=== PATIENT | female | born 1940 | race Caucasian/White ===

== ENCOUNTER 2023-02-06 18:54 | Inpatient (IN) | payer OTHER, SELFPAY ==
[2023-02-06] VITALS (8 sets, daily range): BP systolic 159–199; BP diastolic 76–98; PULSE 75–84; RESP 16–20; TEMP 36.2–36.8; O2SAT 92–98; BMI 23.1; BMI 25.4
--- NOTE | 2023-02-06 19:38 | DI.RAD.S_ITS ---
PROCEDURE: XR HIP W PEL IF DONE LT 2V INDICATIONS: LT hip pain after fall TECHNIQUE: AP pelvis with lateral view(s) of the left hip(s). COMPARISON: None. FINDINGS: Bones: No dislocations but there is a subcapital mildly impacted femoral neck fracture.. Pelvic ring appears intact. No suspicious bony lesions. Soft tissues: The visualized bowel gas pattern is normal. No suspicious soft tissue calcifications. Radiodensity at the L5 vertebral body suggest prior vertebroplasty/kyphoplasty. IMPRESSION: Subcapital mildly impacted acute femoral neck fracture. Dictated by: Anil Lara M.D. on 02/06/2023 at 20:05 Approved by: Anil Lara M.D. on 02/06/2023 at 20:07
--- NOTE | 2023-02-06 19:38 | ED.FALL ---
HPI - Fall General Chief Complaint: Fall Stated Complaint: GLF/ Left hip pain Time Seen by Provider: 02/06/23 19:36 Source: patient and EMS Mode of arrival: EMS History of Present Illness HPI Narrative: 82-year-old female is here for evaluation of injuries that she sustained when she states she was walking into a store when she tripped and fell and landed on her left hip. She would no loss of consciousness. Not on anticoagulation. Did not hit her head. Prior to fall did not have palpitations or lightheadedness or shortness of breath. Has been unable to ambulate since the event. Did receive IM fentanyl by EMS prior to arrival. Related Data Home Medications Medication Instructions Recorded Confirmed acetaminophen 325 mg capsule 500 mg PO QID 02/06/23 02/06/23 (Tylenol) amlodipine 2.5 mg tablet 5 mg PO DAILY 02/06/23 02/06/23 hydrochlorothiazide 25 mg tablet 25 mg PO DAILY 02/06/23 02/06/23 hydrocodone 5 mg-acetaminophen 325 5 tab PO PRN PRN Back Pain 02/06/23 02/06/23 mg tablet meloxicam 7.5 mg tablet 7.5 mg PO BID 02/06/23 02/06/23 methocarbamol 750 mg tablet 750 mg PO PRN PRN Back Pain 02/06/23 02/06/23 metoprolol succinate 25 mg 25 mg PO DAILY 02/06/23 02/06/23 tablet,extended release 24 hr mirtazapine 15 mg tablet 30 mg PO DAILY 02/06/23 02/06/23 omeprazole 20 mg capsule,delayed 20 mg PO BID 02/06/23 02/06/23 release Allergies Allergy/AdvReac Type Severity Reaction Status Date / Time No Known Drug Allergies Allergy Verified 02/06/23 19:09 Review of Systems Constitutional Constitutional: Reports system reviewed and no additional complaints, except as documented Cardiovascular Cardiovascular: Reports system reviewed and no additional complaints, except as documented Respiratory Respiratory: Reports system reviewed and no additional complaints, except as documented Gastrointestinal Gastrointestinal: Reports system reviewed and no additional complaints, except as documented Musculoskeletal Musculoskeletal: Reports system reviewed and no additional complaints, except as documented Hematologic/Lymphatic On Anticoagulants: No Patient History Social History Smoking Status: Never smoker Smoking Status: Never smoker alcohol intake frequency: 0-2 drinks per day Substance Use Type: does not use Exam Initial Vital Signs Initial Vital Signs: Vital Signs Temperature 98.2 F 02/06/23 19:02 Pulse Rate 75 02/06/23 19:02 Respiratory Rate 16 02/06/23 19:02 Blood Pressure 199/93 H 02/06/23 19:02 Pulse Oximetry 95 02/06/23 19:02 Oxygen Delivery Method Room Air 02/06/23 19:02 Const General: cooperative, comfortable and No ill appearing [facility] Head: normal to inspection and normocephalic Resp Effort & Inspection: normal respiratory effort Cardio Rate: regular rate Neuro General: patient alert, patient awake, patient oriented x3 and moves all extremities Extrem Other: Discomfort with palpation of the left hip. Left leg is shortened and rotated. Course Orders Ordered: ED Orders 02/06/23 19:38 XR hip w pel if done LT 2V Stat 02/06/23 20:20 Basic Metabolic Panel Stat Complete Blood Count AUTO DIFF Stat 02/06/23 20:27 Consult to Orthopedic Surgery Stat Acetaminophen (Acetaminophen 325 Mg Tablet) 650 mg PO Q6H PRN PRN Reason: Fever/Mild Pain (1-3) Al Hydrox/Mg Hydrox/Simethicone (Mag Hydrox/Alum/Simeth 30 Ml Udc) 30 ml PO Q6HR PRN PRN Reason: Dyspepsia Amlodipine Besylate (Amlodipine 5 Mg Tablet) 5 mg PO DAILY [facility] Enoxaparin Sodium (Enoxaparin 40 Mg/0.4 Ml Syringe) 40 mg SUBCUT DAILY [facility] Hydrochlorothiazide (Hydrochlorothiazide 25 Mg Tablet) 25 mg PO DAILY [facility] Sodium Chloride (Normal Saline 0.9%) 1,000 mls @ 84 mls/hr IV CONT [facility] Ibuprofen (Ibuprofen 400 Mg Tablet) 400 mg PO Q4H PRN PRN Reason: Pain, Mild (1-3) Metoprolol Succinate (Metoprolol Er 25 Mg Tablet) 25 mg PO DAILY [facility] Mirtazapine (Mirtazapine 15 Mg Tablet) 30 mg PO DAILY [facility] Morphine Sulfate (Morphine 4 Mg/Ml Inj) 3 mg IV Q4HR PRN PRN Reason: Pain, Severe (7-10) Naloxone HCl (Naloxone 0.4 Mg/Ml Vial) 0.2 mg IV Q2MIN PRN PRN Reason: Opiate Reversal Ondansetron HCl (Ondansetron 4 Mg Odt) 4 mg PO Q8HR PRN PRN Reason: Nausea And Vomiting Oxycodone HCl (Oxycodone Ir 5 Mg Tablet) 5 mg PO Q3H PRN PRN Reason: Pain, Moderate (4-6) Pantoprazole Sodium (Pantoprazole Dr 20 Mg Tablet) 20 mg PO BID USMAN Discontinued Medications Hydromorphone HCl (Hydromorphone 0.5 Mg Inj) 0.5 mg IV NOW ONE Stop: 02/06/23 21:56 Last Admin: 02/06/23 21:59 Dose: 0.5 mg Documented By: SB Morphine Sulfate (Morphine 4 Mg/Ml Inj) 4 mg IV NOW ONE Stop: 02/06/23 19:40 Last Admin: 02/06/23 20:22 Dose: 4 mg Documented By: QUYEN Morphine Sulfate (Morphine 4 Mg/Ml Inj) 4 mg IV NOW ONE Stop: 02/06/23 21:21 Last Admin: 02/06/23 21:23 Dose: 4 mg Documented By: QUYEN Ondansetron HCl (Ondansetron 4 Mg/2 Ml Inj) 4 mg IV NOW ONE Stop: 02/06/23 21:21 Last Admin: 02/06/23 21:24 Dose: 4 mg Documented By: QUYEN Vital Signs Vital signs: Vital Signs - 8 hr 02/06/23 19:02 02/06/23 19:23 02/06/23 19:30 Temperature 98.2 F Pulse Rate 75 75 Respiratory Rate 16 Blood Pressure 199/93 H 181/86 H Pulse Oximetry 95 94 Oxygen Delivery Method Room Air 02/06/23 19:30 02/06/23 20:00 02/06/23 20:00 Temperature Pulse Rate 75 80 Respiratory Rate 18 Blood Pressure 181/81 H Pulse Oximetry 93 98 Oxygen Delivery Method 02/06/23 20:30 02/06/23 20:30 02/06/23 21:00 Temperature Pulse Rate 79 Respiratory Rate 20 Blood Pressure 180/88 H 181/85 H Pulse Oximetry 94 Oxygen Delivery Method 02/06/23 21:00 Temperature Pulse Rate 78 Respiratory Rate Blood Pressure Pulse Oximetry 92 Oxygen Delivery Method MDM - Fall Lab Data Attestation: I reviewed the patient's lab results. 02/06/23 20:20 02/06/23 20:20 Labs: Lab Results 02/06/23 02/06/23 Range/Units 20:20 20:20 WBC 8.9 (4.5-11.0) X10^3/uL RBC 3.97 L (4.0-5.2) X10^6/uL Hgb 12.3 (12.0-16.0) g/dL Hct 35.3 L (36-46) % MCV 89.0 (80-100) fL MCH 30.9 (26-34) PG MCHC 34.7 (30-36) % RDW 14.7 (11.6-14.8) % Plt Count 173 (150-400) X10^3/uL Neut % (Auto) Not Reportable Lymph % (Auto) Not Reportable [place] % (Auto) Not Reportable Eos % (Auto) Not Reportable Baso % (Auto) Not Reportable Lymph # (Auto) Not Reportable [place] # (Auto) Not Reportable Baso # (Auto) Not Reportable Total Counted 100 Seg Neutrophils % 80.0 H (38-70) % Lymphocytes % (Manual) 14.0 L (25-45) % Atypical Lymphs % 1.0 H ( - 0) % Monocytes % (Manual) 2.0 (2-11) % Eosinophils % (Manual) 2.0 (2-4) % Basophils % (Manual) 1.0 (0-1) % Neutrophils # (Manual) 7120 H (9564-2462) /uL RBC Morphology See below Hypochromasia 1+ H Poikilocytosis 1+ H Fatimah Cells 1+ H Schistocytes 1+ H Sodium 126 L (137-145) mmol/L Potassium 3.4 (3.4-5.1) mmol/L Chloride 91 L (98-107) mmol/L Carbon Dioxide 24 (22-32) mmol/L BUN 14 (7-17) mg/dL Creatinine 0.77 (0.52-1.04) mg/dL Estimated GFR > 60 (>60) mL/min BUN/Creatinine Ratio 18.2 (6-22) Glucose 109 (80-110) mg/dL Calcium 9.2 (8.4-10.2) mg/dL Imaging Data Extremity x-ray #1: Radiologist's Impression: PROCEDURE:? XR HIP W PEL IF DONE LT 2V ? INDICATIONS:? LT hip pain after fall ? TECHNIQUE:? AP pelvis with lateral view(s) of the left hip(s).? ? COMPARISON:? None. ? FINDINGS:? ? Bones:? No dislocations but there is a subcapital mildly impacted femoral neck fracture.. ?Pelvic ring appears intact.? No suspicious bony lesions.? ? Soft tissues:? The visualized bowel gas pattern is normal.? No suspicious soft tissue calcifications.? Radiodensity at the L5 vertebral body suggest prior vertebroplasty/kyphoplasty. ? ? IMPRESSION:? Subcapital mildly impacted acute femoral neck fracture. MDM Narrative Medical decision making narrative: X-ray shows left femoral neck fracture. Discussed the case with Dr. Short on-call for Orthopedic surgery who see the patient tomorrow morning. And then discuss the case with hospitalist on-call who will admit for further evaluation and treatment. I did discuss the findings of the x-ray with the patient. We discussed the need for admission. They expressed understanding and agreement. Discharge Plan Departure Patient Disposition: Admitted As Inpatient Clinical Impression: Fracture of femoral neck, left, Hypertension Admit Date/Time: 02/06/23 21:15 Admit Provider: Ti Larsen
[2023-02-06] MEDS: MORPHINE 4 MG/ML INJ IV ×2 (20:22→21:23)
[2023-02-06 20:39] LABS: Hematocrit 35.3 % (36-46); Hemoglobin 12.3 g/dL (12.0-16.0); Mean Corpuscular HGB Conc 34.7 % (30-36); Mean Corpuscular Hemoglobin 30.9 PG (26-34); Platelet Count 173 X10^3/uL (150-400); Red Blood Cell Count 3.97 X10^6/uL (4.0-5.2); Red Cell Distribution Width 14.7 % (11.6-14.8); White Blood Cell Count 8.9 X10^3/uL (4.5-11.0)
[2023-02-06 20:40] LABS: Add Manual Diff / Slide Review YES
[2023-02-06 20:46] LABS: BUN Creatinine Ratio 18.2 (6-22); Blood Urea Nitrogen 14 mg/dL (7-17); Calcium 9.2 mg/dL (8.4-10.2); Carbon Dioxide 24 mmol/L (22-32); Chloride 91 mmol/L (98-107); Estimated Glomerular Filt Rate > 60 mL/min (>60); Glucose 109 mg/dL (80-110); HEMOLYSIS < 15 (0-50); Potassium 3.4 mmol/L (3.4-5.1); Sodium 126 mmol/L (137-145)
[2023-02-06 21:04] LABS: Neutrophils Absolute Manual 7120 /uL (3000-5900); Total Cells Counted 100
[2023-02-06 21:05] LABS: Burr Cells 1+; Hypochromasia 1+; Poikilocytosis 1+; Schistocytes 1+
[2023-02-06] MEDS: ONDANSETRON 4 MG/2 ML INJ IV (21:24)
[2023-02-06] MEDS: HYDROMORPHONE 0.5 MG INJ IV (21:59)
[2023-02-07] VITALS (16 sets, daily range): BP systolic 137–166; BP diastolic 62–130; PULSE 71–88; RESP 11–18; TEMP 36.1–36.9; O2SAT 92–97; BMI 25.4
--- NOTE | 2023-02-07 | DI.RAD.S_ITS ---
PROCEDURE: XR HIP W PEL IF DONE LT 2V INDICATIONS: ORIF OF LT HIP TECHNIQUE: 2 low resolution fluoroscopic spot films were obtained intra[facility]/06/[facility]23, 19:35. FINDINGS: Intraoperative spot films show 3 orthopedic threaded screw cannulated screws traversing the left femoral neck fracture in good position IMPRESSION: Fluoroscopic guidance Approved by: Raghu Fajardo M.D. on 02/07/2023 at 15:41
[2023-02-07] MEDS: ACETAMINOPHEN 325 MG TABLET 650 MG PO ×4 (00:09→20:26)
[2023-02-07] MEDS: ENOXAPARIN 40 MG/0.4 ML SYRINGE SUBCUT (00:10)
[2023-02-07] MEDS: OXYCODONE IR 5 MG TABLET PO ×3 (00:10→21:38)
[2023-02-07] MEDS: SODIUM CHLORIDE 0.9% 1,000 ML 84 ML IV ×2 (00:11→14:37)
[2023-02-07] MEDS: HYDROMORPHONE 2 MG INJ IV (01:42)
--- NOTE | 2023-02-07 02:01 | PM.HP.1 ---
History of Present Illness History of Present Illness Date Patient Seen: 02/06/23 Chief complaint: GLF/ Left hip pain Narrative: 82 y/o with PMH of osteoporosis, recurrent GLFs due to imapired balance, who fell in the store and fractured Lt femoral neck. Presents with left hip pain, unable to bear weight / ambulate. Only recently had kyphoplasty of LS for osteoporotic compression fractures. COUNT INCLUDES THE [facility] Social History household members: family Smoking Status: Never smoker Meds Home Medications and Allergies Home Medications Medication Instructions Recorded Confirmed Type acetaminophen 325 mg capsule 500 mg PO QID 02/06/23 02/06/23 History (Tylenol) amlodipine 2.5 mg tablet 5 mg PO DAILY 02/06/23 02/06/23 History hydrochlorothiazide 25 mg tablet 25 mg PO DAILY 02/06/23 02/06/23 History hydrocodone 5 mg-acetaminophen 325 5 tab PO PRN PRN Back Pain 02/06/23 02/06/23 History mg tablet meloxicam 7.5 mg tablet 7.5 mg PO BID 02/06/23 02/06/23 History methocarbamol 750 mg tablet 750 mg PO PRN PRN Back Pain 02/06/23 02/06/23 History metoprolol succinate 25 mg 25 mg PO DAILY 02/06/23 02/06/23 History tablet,extended release 24 hr mirtazapine 15 mg tablet 30 mg PO DAILY 02/06/23 02/06/23 History omeprazole 20 mg capsule,delayed 20 mg PO BID 02/06/23 02/06/23 History release polyethylene glycol 3350 17 gram 17 g PO PRN PRN Constipation 02/07/23 02/07/23 History oral powder packet (Miralax) Allergies Allergy/AdvReac Type Severity Reaction Status Date / Time Penicillins Allergy Mild Rash Verified 02/07/23 01:21 Review of Systems Constitutional Comments: w/o fever or chills Eyes Comments: w/o recent vision changes Cardiovascular Comments: w/o palpitations or chest pain Respiratory Comments: w/o shortness of breath or cough Gastrointestinal Comments: heartburn Genitourinary Comments: w/o dysuria - doing self catheterizations Musculoskeletal Comments: left groin pain Neurologic Comments: w/o focal weakness or numbness Psychiatric Comments: negative Exam Vital Signs (past 8 hours): - 02/06/23 19:02 02/06/23 19:23 02/06/23 19:30 Temperature 98.2 F Pulse Rate 75 75 Respiratory Rate 16 Blood Pressure 199/93 H 181/86 H Pulse Oximetry 95 94 Oxygen Delivery Method Room Air Oxygen Flow Rate 02/06/23 19:30 02/06/23 20:00 02/06/23 20:00 Temperature Pulse Rate 75 80 Respiratory Rate 18 Blood Pressure 181/81 H Pulse Oximetry 93 98 Oxygen Delivery Method Oxygen Flow Rate 02/06/23 20:30 02/06/23 20:30 02/06/23 21:00 Temperature Pulse Rate 79 Respiratory Rate 20 Blood Pressure 180/88 H 181/85 H Pulse Oximetry 94 Oxygen Delivery Method Oxygen Flow Rate 02/06/23 21:00 02/06/23 21:30 02/06/23 22:27 Temperature 97.1 F L Pulse Rate 78 84 Respiratory Rate 20 Blood Pressure 159/76 H 189/98 H Pulse Oximetry 92 93 Oxygen Delivery Method Oxygen Flow Rate 0 02/07/23 00:22 Temperature 97.6 F Pulse Rate 81 Respiratory Rate 18 Blood Pressure 161/82 H Pulse Oximetry 97 Oxygen Delivery Method Oxygen Flow Rate 0 Oxygen Delivery Method Room Air Oxygen Flow Rate 0 Const Other: laying in bed in no distress, daughter at bedside HENMT Other: chronic hearing loss Eyes Other: jaimie, eomi Neck Other: supple Resp Other: CTA Cardio Other: RRR, w/o murmurs GI Other: soft, not distended Other: doing selg catheterizations Neuro Other: w/o acute focal deficits Extrem Other: w/o swelling Psych Other: appropriate mood and affect Objective Labs 02/06/23 20:20 02/06/23 20:20 Labs: Laboratory Results - last 24 hr 02/06/23 02/06/23 20:20 20:20 WBC 8.9 RBC 3.97 L Hgb 12.3 Hct 35.3 L MCV 89.0 MCH 30.9 MCHC 34.7 RDW 14.7 Plt Count 173 Neut % (Auto) Not Reportable Lymph % (Auto) Not Reportable [place] % (Auto) Not Reportable Eos % (Auto) Not Reportable Baso % (Auto) Not Reportable Lymph # (Auto) Not Reportable [place] # (Auto) Not Reportable Baso # (Auto) Not Reportable Total Counted 100 Seg Neutrophils % 80.0 H Lymphocytes % (Manual) 14.0 L Atypical Lymphs % 1.0 H Monocytes % (Manual) 2.0 Eosinophils % (Manual) 2.0 Basophils % (Manual) 1.0 Neutrophils # (Manual) 7120 H RBC Morphology See below Hypochromasia 1+ H Poikilocytosis 1+ H Fatimah Cells 1+ H Schistocytes 1+ H Sodium 126 L Potassium 3.4 Chloride 91 L Carbon Dioxide 24 BUN 14 Creatinine 0.77 Estimated GFR > 60 BUN/Creatinine Ratio 18.2 Glucose 109 Calcium 9.2 Assessment & Plan Assessment and plan (1) Fracture of femoral neck, left: Status: Acute Plan: - impacetd, subcapital - pain management - NPO after midnight - Orthopedist will see in AM - low surgical risk (2) GERD (gastroesophageal reflux disease): Status: Acute Plan: - PPI (3) Hypertension: Status: Acute Plan: - HCTZ, amlodipine, BB (4) Osteoporosis: Status: Acute Plan: used to be on Fosamax. Apparently on nothing right now - will need vit D and bisphosphonate (5) Recurrent falls: Status: Acute Plan: PT, OT evaluation (6) Hyponatremia: Status: Acute Plan: NS, recheck nelly
[2023-02-07 05:20] LABS: Hematocrit 34.9 % (36-46); Mean Corpuscular HGB Conc 34.3 % (30-36); Mean Corpuscular Hemoglobin 30.8 PG (26-34); Mean Corpuscular Volume 89.7 fL (80-100); Platelet Count 158 X10^3/uL (150-400); Red Blood Cell Count 3.89 X10^6/uL (4.0-5.2); Red Cell Distribution Width 14.1 % (11.6-14.8); White Blood Cell Count 7.4 X10^3/uL (4.5-11.0)
[2023-02-07 05:21] LABS: PTT Partial Thromboplastin Tim 33 SECONDS (26-36)
[2023-02-07 05:23] LABS: BUN Creatinine Ratio 16.7 (6-22); Blood Urea Nitrogen 15 mg/dL (7-17); Calcium 8.6 mg/dL (8.4-10.2); Carbon Dioxide 25 mmol/L (22-32); Chloride 96 mmol/L (98-107); Estimated Glomerular Filt Rate > 60 mL/min (>60); Glucose 99 mg/dL (80-110); HEMOLYSIS < 15 (0-50); Potassium 4.2 mmol/L (3.4-5.1); Sodium 127 mmol/L (137-145)
[2023-02-07 05:24] LABS: Add Manual Diff / Slide Review YES
[2023-02-07 05:58] LABS: Anisocytosis 1+; Neutrophils Absolute Manual 5254 /uL (3000-5900); Total Cells Counted 100
--- NOTE | 2023-02-07 07:11 | PM.HP.1 ---
History of Present Illness History of Present Illness Date Patient Seen: 02/06/23 Chief complaint: GLF/ Left hip pain Narrative: 82 y/o with PMH of osteoporosis, recurrent GLFs due to imapired balance, who fell in the store and fractured Lt femoral neck. Presents with left hip pain, unable to bear weight / ambulate. Only recently had kyphoplasty of LS for osteoporotic compression fractures. [facility] Social History household members: none Smoking Status: Never smoker Meds Home Medications and Allergies Home Medications Medication Instructions Recorded Confirmed Type acetaminophen 325 mg capsule 500 mg PO QID 02/06/23 02/06/23 History (Tylenol) amlodipine 2.5 mg tablet 5 mg PO DAILY 02/06/23 02/06/23 History hydrochlorothiazide 25 mg tablet 25 mg PO DAILY 02/06/23 02/06/23 History hydrocodone 5 mg-acetaminophen 325 5 tab PO PRN PRN Back Pain 02/06/23 02/06/23 History mg tablet meloxicam 7.5 mg tablet 7.5 mg PO BID 02/06/23 02/06/23 History methocarbamol 750 mg tablet 750 mg PO PRN PRN Back Pain 02/06/23 02/06/23 History metoprolol succinate 25 mg 25 mg PO DAILY 02/06/23 02/06/23 History tablet,extended release 24 hr mirtazapine 15 mg tablet 30 mg PO DAILY 02/06/23 02/06/23 History omeprazole 20 mg capsule,delayed 20 mg PO BID 02/06/23 02/06/23 History release polyethylene glycol 3350 17 gram 17 g PO PRN PRN Constipation 02/07/23 02/07/23 History oral powder packet (Miralax) Allergies Allergy/AdvReac Type Severity Reaction Status Date / Time Penicillins Allergy Mild Rash Verified 02/07/23 01:21 Review of Systems Review of Systems Narrative: All other systems reviewed with the patient and are negative unless otherwise stated. Exam Vital Signs (past 8 hours): - 02/07/23 00:22 02/07/23 03:45 Temperature 97.6 F 97.7 F Pulse Rate 81 73 Respiratory Rate 18 17 Blood Pressure 161/82 H 146/62 H Pulse Oximetry 97 93 Oxygen Flow Rate 0 0 Oxygen Delivery Method Room Air Oxygen Flow Rate 0 Const Other: laying in bed in no distress, daughter at bedside HENMT Other: chronic hearing loss Eyes Other: jaimie, eomi Neck Other: supple Resp Other: CTA Cardio Other: RRR, w/o murmurs GI Other: soft, not distended Other: doing self catheterizations Neuro Other: w/o acute focal deficits Extrem Other: w/o swelling Psych Other: appropriate mood and affect Objective Labs 02/07/23 05:00 02/07/23 05:00 Labs: Laboratory Results - last 24 hr 02/06/23 02/06/23 02/07/23 20:20 20:20 05:00 WBC 8.9 RBC 3.97 L Hgb 12.3 Hct 35.3 L MCV 89.0 MCH 30.9 MCHC 34.7 RDW 14.7 Plt Count 173 Neut % (Auto) Not Reportable Lymph % (Auto) Not Reportable [place] % (Auto) Not Reportable Eos % (Auto) Not Reportable Baso % (Auto) Not Reportable Lymph # (Auto) Not Reportable [place] # (Auto) Not Reportable Baso # (Auto) Not Reportable Total Counted 100 Seg Neutrophils % 80.0 H Band Neutrophils % Lymphocytes % (Manual) 14.0 L Atypical Lymphs % 1.0 H Monocytes % (Manual) 2.0 Eosinophils % (Manual) 2.0 Basophils % (Manual) 1.0 Neutrophils # (Manual) 7120 H RBC Morphology See below Hypochromasia 1+ H Poikilocytosis 1+ H Anisocytosis Fatimah Cells 1+ H Schistocytes 1+ H APTT 33 Sodium 126 L Potassium 3.4 Chloride 91 L Carbon Dioxide 24 BUN 14 Creatinine 0.77 Estimated GFR > 60 BUN/Creatinine Ratio 18.2 Glucose 109 Calcium 9.2 02/07/23 02/07/23 05:00 05:00 WBC 7.4 RBC 3.89 L Hgb 12.0 Hct 34.9 L MCV 89.7 MCH 30.8 MCHC 34.3 RDW 14.1 Plt Count 158 Neut % (Auto) Not Reportable Lymph % (Auto) Not Reportable [place] % (Auto) Not Reportable Eos % (Auto) Not Reportable Baso % (Auto) Not Reportable Lymph # (Auto) Not Reportable [place] # (Auto) Not Reportable Baso # (Auto) Not Reportable Total Counted 100 Seg Neutrophils % 69.0 Band Neutrophils % 2.0 L Lymphocytes % (Manual) 21.0 L Atypical Lymphs % Monocytes % (Manual) 5.0 Eosinophils % (Manual) 2.0 Basophils % (Manual) 1.0 Neutrophils # (Manual) 5254 RBC Morphology See below Hypochromasia Poikilocytosis Anisocytosis 1+ H [facility] Cells Schistocytes APTT Sodium 127 L Potassium 4.2 Chloride 96 L Carbon Dioxide 25 BUN 15 Creatinine 0.90 Estimated GFR > 60 BUN/Creatinine Ratio 16.7 Glucose 99 Calcium 8.6 Assessment & Plan Assessment and plan (1) Fracture of femoral neck, left: Status: Acute Plan: - impacted, subcapital - pain management - underwent surgical repair with screws on 02/[address] Han ornelas - low surgical risk - PT/OT evals (2) GERD (gastroesophageal reflux disease): Status: Acute Plan: - PPI (3) Hypertension: Status: Acute Plan: - HCTZ, amlodipine, BB (4) Osteoporosis: Status: Acute Plan: used to be on Fosamax. Apparently on nothing right now - will need vit D and bisphosphonate (5) Recurrent falls: Status: Acute Plan: PT, OT evaluation (6) Hyponatremia: Status: Acute Plan: NS, recheck lytes Plan Dispo: Likely will need SNF.
[2023-02-07] MEDS: IBUPROFEN 400 MG TABLET PO (08:21)
[2023-02-07] MEDS: METOPROLOL ER 25 MG TABLET PO (08:21)
[2023-02-07] MEDS: hydroCHLOROthiazide 25 MG TABLET PO (08:21)
[2023-02-07] MEDS: AMLODIPINE 5 MG TABLET PO (08:22)
[2023-02-07] MEDS: PANTOPRAZOLE DR 20 MG TABLET PO ×2 (08:22→20:26)
[2023-02-07] MEDS: MIRTAZAPINE 15 MG TABLET 30 MG PO (08:22)
--- NOTE | 2023-02-07 09:27 | CM.DANOTE ---
DCP Assessment Note: Patient is a 82yo F here following a GLF. PCP Dr. Matthews(sp?) in [facility] and self pay CONE FORMER reviewed EMR. Per RN, patient is likely to have surgery later today for broken hip and neck fracture but unsure on time. CONE FORMER entered room and introduced self and role. Patient resting in bed and appeared A/Ox4. Patient lives alone on top floor of apartment in [place] but has a daughter that lives nearby that she can stay with upon d/c. Daughter Pat De Leon ([phone]). Patient has two other daughters that live in the area that can support her. Patient is A/I at home and only recently stopped driving, but her daughters and other family drive for her. Patient has a few walkers and an electric wheelchair gifted to her. Patient appears more open to HH if needed than SNF, but agrees to wait until she sees how she feels with PT/OT post op. Plan: plan pending patient's status post op. Appears open to HH. Supportive family at home, daughter can likely transport. CM team will continue to follow closely. MEHDI Lopez Discharge Planning/Care Management CM Discharge Assessment Start: 02/07/23 09:23 Freq: Status: Active Protocol: Document 02/07/23 09:23 (Rec: 02/07/23 09:26 [email or web address]) Discharge Planning Assessment Assigned Cyber Defense Analyst MEHDI Barrientos DPOA/Assigned Designee Name Pat De Leon (daughter) Contact Information [phone] Advance Directives? No History Provided By Patient,Medical Record Prior Living Arrangements House Household Members none Comment lives alone but daughter and OLYA lives nearby Comment reports recently the DMV told her she is not allowed to drive anymore. Relies on daughters and other family for transport Independent with ADL's Yes Is patient alert and oriented? Yes DME Already Rented / Owned Wheelchair,FWW / Walker Comment neighbor gave her an electric wheelchair. has a few walkers Comment pending post op needs and PT/ OT rec Discharge Plan Home Transportation Arrangement likely daughter in POV Whiteboard Updated in Patient Room with Yes name and ext. # of Cyber Defense Analyst Review Status In Process Next Review Type Continued Stay Review
--- NOTE | 2023-02-07 10:12 | PT-IP ANOTE ---
Per MD during rounds, the patient is on hold for therapy services until she undergoes surgery to fix left femoral neck fracture.
--- NOTE | 2023-02-07 10:15 | P.CONS_ITS ---
History of Present Illness Consult details Date Patient Seen: 02/07/23 Time Patient Seen: 09:30 Chief complaint: GLF/ Left hip pain Narrative: 82-year-old female who tripped and fell at [employer] yesterday landing on her left hip. Patient denies hitting her head or any loss of consciousness. Denies any other injuries except to the left hip. After the fall had quite a bit of pain to the left hip and difficulty ambulating. Was taken to the emergency room where x-ray showed a impacted femoral neck fracture. Due to these injuries patient was admitted by the hospitalist. And Orthopedic was consulted for possible surgery. Meds Home Medications and Allergies Home Medications Medication Instructions Recorded Confirmed Type acetaminophen 325 mg capsule 500 mg PO QID 02/06/23 02/06/23 History (Tylenol) amlodipine 2.5 mg tablet 5 mg PO DAILY 02/06/23 02/06/23 History hydrochlorothiazide 25 mg tablet 25 mg PO DAILY 02/06/23 02/06/23 History hydrocodone 5 mg-acetaminophen 325 5 tab PO PRN PRN Back Pain 02/06/23 02/06/23 History mg tablet meloxicam 7.5 mg tablet 7.5 mg PO BID 02/06/23 02/06/23 History methocarbamol 750 mg tablet 750 mg PO PRN PRN Back Pain 02/06/23 02/06/23 History metoprolol succinate 25 mg 25 mg PO DAILY 02/06/23 02/06/23 History tablet,extended release 24 hr mirtazapine 15 mg tablet 30 mg PO DAILY 02/06/23 02/06/23 History omeprazole 20 mg capsule,delayed 20 mg PO BID 02/06/23 02/06/23 History release polyethylene glycol 3350 17 gram 17 g PO PRN PRN Constipation 02/07/23 02/07/23 History oral powder packet (Miralax) Allergies Allergy/AdvReac Type Severity Reaction Status Date / Time Penicillins Allergy Mild Rash Verified 02/07/23 01:21 Exam Vital Signs (past 8 hours): - 02/07/23 03:45 02/07/23 08:21 02/07/23 07:00 Temperature 97.7 F 98.4 F Pulse Rate 73 76 76 Respiratory Rate 17 17 Blood Pressure 146/62 H 145/68 H 145/68 H Pulse Oximetry 93 92 Oxygen Flow Rate 0 0 Oxygen Delivery Method Room Air Oxygen Flow Rate 0 Narrative Exam Narrative: On exam today patient is alert and oriented x3. No apparent distress. No abnormalities to the bilateral upper extremities. Patient has normal range of motion to bilateral upper extremities. Does have a deformity to the right wrist due to a previous distal radius fracture 6 months ago. But no sign of any acute injuries. Compartments are soft. No sign of any laxity or instability. No sign of any swelling to the bilateral upper extremities. In no pain with range of motion. Right lower extremity is also free of any abnormalities. Normal range of motion without any pain or instability. Also no bruising or swelling. Compartments are soft. Left lower extremity shows some slight shortening not much rotation deformity. Positive dorsiflexion and plantar flexion. Palpable pedal pulses. Compartments are soft. No sign of any open wounds or skin abrasions. Objective Labs 02/07/23 05:00 02/07/23 05:00 Labs: Laboratory Results - last 24 hr 02/06/23 02/06/23 02/07/23 20:20 20:20 05:00 WBC 8.9 RBC 3.97 L Hgb 12.3 Hct 35.3 L MCV 89.0 MCH 30.9 MCHC 34.7 RDW 14.7 Plt Count 173 Neut % (Auto) Not Reportable Lymph % (Auto) Not Reportable [place] % (Auto) Not Reportable Eos % (Auto) Not Reportable Baso % (Auto) Not Reportable Lymph # (Auto) Not Reportable [place] # (Auto) Not Reportable Baso # (Auto) Not Reportable Total Counted 100 Seg Neutrophils % 80.0 H Band Neutrophils % Lymphocytes % (Manual) 14.0 L Atypical Lymphs % 1.0 H Monocytes % (Manual) 2.0 Eosinophils % (Manual) 2.0 Basophils % (Manual) 1.0 Neutrophils # (Manual) 7120 H RBC Morphology See below Hypochromasia 1+ H Poikilocytosis 1+ H Anisocytosis Fatimah Cells 1+ H Schistocytes 1+ H APTT 33 Sodium 126 L Potassium 3.4 Chloride 91 L Carbon Dioxide 24 BUN 14 Creatinine 0.77 Estimated GFR > 60 BUN/Creatinine Ratio 18.2 Glucose 109 Calcium 9.2 02/07/23 02/07/23 05:00 05:00 WBC 7.4 RBC 3.89 L Hgb 12.0 Hct 34.9 L MCV 89.7 MCH 30.8 MCHC 34.3 RDW 14.1 Plt Count 158 Neut % (Auto) Not Reportable Lymph % (Auto) Not Reportable [place] % (Auto) Not Reportable Eos % (Auto) Not Reportable Baso % (Auto) Not Reportable Lymph # (Auto) Not Reportable [place] # (Auto) Not Reportable Baso # (Auto) Not Reportable Total Counted 100 Seg Neutrophils % 69.0 Band Neutrophils % 2.0 L Lymphocytes % (Manual) 21.0 L Atypical Lymphs % Monocytes % (Manual) 5.0 Eosinophils % (Manual) 2.0 Basophils % (Manual) 1.0 Neutrophils # (Manual) 5254 RBC Morphology See below Hypochromasia Poikilocytosis Anisocytosis 1+ H Fatimah Cells Schistocytes APTT Sodium 127 L Potassium 4.2 Chloride 96 L Carbon Dioxide 25 BUN 15 Creatinine 0.90 Estimated GFR > 60 BUN/Creatinine Ratio 16.7 Glucose 99 Calcium 8.6 PFSH Social History household members: none Tobacco & Substance Use Smoking Status: Never smoker Assessment & Plan Assessment & Plan narrative: 82-year-old female with a left impacted femoral neck fracture. Due to this injury I would recommend surgery to address the fracture. Went over the particular risks and limitations associated with the procedure and all of her questions and concerns were answered to her full satisfaction. The risk, benefits, alternatives, possible complications, operative course, and postop outcomes were discussed. Complications including but not limiting to bleeding, infection, fracture, nerve injury, continued pain postoperatively or instability postoperatively were discussed in detail. Medical complications including but not limited to deep venous thrombosis event, anesthesia complications with excessive bleeding, vascular events or cardiac events and other possible complications were discussed in detail. Need for postoperative rehabilitation and anticipated hospital stay and clinical course were discussed in detail. Patient acknowledges understanding and elects to proceed with surgery.
--- NOTE | 2023-02-07 11:20 | PM.PREOP ---
Pre-operative Note Interval Note History & Physical reviewed/Exam performed by Physician: Yes Changes to H&P: No
[2023-02-07] MEDS: LACTATED RINGERS 1,000 ML 42 ML IV (11:21)
[2023-02-07] MEDS: ALBUTEROL/IPRATROPIUM 3 ML AMPUL INH (11:28)
[2023-02-07] MEDS: CEFAZOLIN 2 GM/100 ML PREMIX 100 ML IV ×2 (12:00→20:27)
--- NOTE | 2023-02-07 12:25 | SUR.OPER ---
Lateral on a tariq bag, head on pillow, gel axillary roll in place, bottom leg bent with gel pad under knee to foot, upper leg straight and supported with pillows. Upper arm supported by pillows and secured over bottom arm to padded arm board. Safety belt at hip, tape over blanket lower legs.
[2023-02-07] MEDS: BUPIVACAINE 0.5% (PF) 30 ML VIAL INJ (12:36)
--- NOTE | 2023-02-07 12:58 | P.OP_ITS ---
Operative Date/Time/Diagnoses Date of procedure: 02/07/23 Time of procedure: 12:00 Pre-op diagnosis: Left femoral neck fracture Post-op diagnosis: same Procedure & Clinicians Procedure: Closed reduction internal fixation left femoral neck fracture Same procedure as scheduled: Yes Indications: Impacted femoral neck fracture Surgeon: Hitesh Short Click Yes if Unassisted: Yes Anesthesia Type: General Operative Notes Findings: Impacted femoral neck fracture with minimal displacement Closure Type: primary Applied: implant(s) (3 7.3 partially-threaded cannulated screws) Estimated Blood Loss (mL): 10 Procedure in detail: On date of service, patient was met in the holding area where his operative site was signed and witnessed by the OR staff. Surgeries once again discussed with the patient and any remaining questions or concerns he had were answered fully. Patient received 2 g of Ancef preoperatively. Patient was taken back to the operating theater where general anesthesia was admitted. Patient was then transferred to the fracture table. Both feet were well padded and placed into fracture boot. A well-padded perineal post was placed. The left leg was slightly elevated and internally rotated was some distraction. The right leg was placed in scissor position on a lowered position. X-ray was brought in and AP and lateral views were obtained showing maintenance of a impacted left femoral neck fracture. Time-out had previously been formed verifying patient's name, procedure, and operative site. The leg was then prepped and draped in the normal sterile fashion. Ten blade was used to make a small incision on the lateral aspect of thigh. Guevara elevator was then used to elevate off a small area of the muscular tissue so we could get to the shaft of the femur. Guidewire was placed up into the femoral head in a center center position. This was verified on x-ray. Once we were satisfied with the position of the guidewire 2 additional guidewires were placed using the targeting guide. These were also verified with AP and lateral views with the C- arm. Once we were satisfied with the positioning and of the 3 guidewires they were measured and the appropriate screws were placed. Final x-rays were obtained verifying screw positioning and maintenance of reduction of the femoral neck fracture. The wound was then copiously irrigated and then closed in a layered fashion. The wound was cleaned, dried, and dressed. Patient was taken to the PACU in stable condition. Complications: none Post-operative Condition: stable Disposition: Acute Care Plan for aftercare: Patient can be partially weight-bearing to the left lower extremity. No restrictions to range of motion.
--- NOTE | 2023-02-07 17:40 | PC.NURSE ---
Pt arrived back to unit from PACU with no c/o pain or N/V. Pt was on 3 LO2 nasal cannula and was encouraged to cough, deep breathe and use IS when alert/awake. Pt complied with recommendations. SCDs applied and post op vitals started. Lots of family members came to visit pt and I spoke with pt's daughter, Xiomara Mogran, about her questions pertaining to next steps, d/c and length of stay at the hospital at this point. I stated that PT/OT was going to need to work with pt to assess her strength/mobility for d/c, but that our PT staff was scarce on weekends so they will most likely work with pt tomorrow morning. Xiomara mentioned that pt is supposed to use a FWW at home, but refuses and furniture surfs. I recommended that they bring her FWW tomorrow for PT. Xiomara also mentioned that pt has a lot of support at home if she does end up d/cing home, but that if pt needs SNF, they will support that for pt if it's best for pt and the safest option. I stated that care team will speak with them about pt needs tomorrow as well. The main person to contact is daughter, Pat De Leon, phone # , and if we cannot get ahold of her to call other daughter Xiomara Morgan, phone # .
[2023-02-07] MEDS: MELOXICAM 7.5 MG TABLET PO (20:26)
[2023-02-07] MEDS: DOCUSATE 100 MG CAPSULE PO (20:26)
[2023-02-07] MEDS: SENNOSIDES 8.6 MG TABLET 17.2 MG PO (20:27)
[2023-02-07] MEDS: methocarbamoL 500 MG TABLET 750 MG PO (20:37)
[2023-02-08] VITALS (7 sets, daily range): BP systolic 112–174; BP diastolic 52–74; PULSE 68–82; RESP 16–20; TEMP 36.2–36.5; O2SAT 92–99
[2023-02-08] MEDS: SODIUM CHLORIDE 0.9% 1,000 ML 100 ML IV ×2 (01:15→12:21)
[2023-02-08] MEDS: CEFAZOLIN 2 GM/100 ML PREMIX 100 ML IV (05:14)
[2023-02-08 06:04] LABS: BUN Creatinine Ratio 18.7 (6-22); Blood Urea Nitrogen 14 mg/dL (7-17); Carbon Dioxide 21 mmol/L (22-32); Chloride 101 mmol/L (98-107); Estimated Glomerular Filt Rate > 60 mL/min (>60); Glucose 109 mg/dL (80-110); HEMOLYSIS 27 (0-50); Magnesium 1.7 mg/dL (1.6-2.3); Potassium 4.5 mmol/L (3.4-5.1); Sodium 127 mmol/L (137-145)
[2023-02-08 06:13] LABS: Hematocrit 30.7 % (36-46); Hemoglobin 10.4 g/dL (12.0-16.0); Red Blood Cell Count 3.41 X10^6/uL (4.0-5.2); White Blood Cell Count 7.6 X10^3/uL (4.5-11.0)
[2023-02-08 06:14] LABS: Eosinophils Percent Auto 2.3 % (2-4); Lymphocytes Percent Auto 9.3 % (25-40); Mean Corpuscular HGB Conc 33.8 % (30-36); Mean Corpuscular Hemoglobin 30.4 PG (26-34); Monocytes Percent Auto 4.6 % (3-14); Neutrophils Percent Auto 82.8 % (50-75); Red Cell Distribution Width 14.5 % (11.6-14.8)
[2023-02-08 06:15] LABS: Add Manual Diff / Slide Review SLIDE REVIEW; Basophils Absolute Auto 100 /uL (0-100); Eosinophils Absolute Auto 200 /uL (0-450); Lymphocytes Absolute Auto 700 /uL (1100-4500); Monocytes Absolute Auto 300 /uL (0-900); Neutrophils Absolute Auto 6300 /uL (1500-7000)
[2023-02-08 07:07] LABS: Schistocytes 1+
[2023-02-08] MEDS: OXYCODONE IR 5 MG TABLET PO ×4 (08:08→18:43)
[2023-02-08] MEDS: METOPROLOL ER 25 MG TABLET PO (08:09)
[2023-02-08] MEDS: DOCUSATE 100 MG CAPSULE PO ×2 (08:09→20:15)
[2023-02-08] MEDS: AMLODIPINE 5 MG TABLET PO (08:09)
[2023-02-08] MEDS: ENOXAPARIN 40 MG/0.4 ML SYRINGE SUBCUT (08:09)
[2023-02-08] MEDS: hydroCHLOROthiazide 25 MG TABLET PO (08:09)
[2023-02-08] MEDS: PANTOPRAZOLE DR 20 MG TABLET PO ×2 (08:10→20:14)
[2023-02-08] MEDS: MIRTAZAPINE 15 MG TABLET 30 MG PO (08:10)
[2023-02-08] MEDS: polyethylene glycoL 3350 17 GM POWD.PACK PO (08:10)
[2023-02-08] MEDS: MELOXICAM 7.5 MG TABLET PO ×2 (08:12→20:15)
[2023-02-08] MEDS: HYDROMORPHONE 0.5 MG INJ IV ×2 (09:05→11:00)
[2023-02-08] MEDS: MAGNESIUM CHLORIDE 64 MG TABLET 128 MG PO (09:07)
--- NOTE | 2023-02-08 09:45 | OT.IP.EVAL ---
Current Diagnoses Hypo-osmolality and hyponatremia (02/06/23) Essential (primary) hypertension (02/06/23) Gastro-esophageal reflux disease without esophagitis (02/06/23) Age-related osteoporosis without current pathological fracture (02/06/23) Repeated falls (02/06/23) Fracture of unspecified part of neck of left femur, initial encounter for closed fracture (02/06/23) Surgery Performed Operation Date: 02/07/23 12:00 Actual Procedures p ORIF Hip/Cannulated Screws - Hitesh Short MD Occupational Therapy Inpatient Evaluation/Re-Eval M1 PT/OT-IP Prior Functional Status Start: 02/08/23 08:35 Freq: NEEDED Status: Active Protocol: Document 02/08/23 10:12 CGR (Rec: 02/08/23 10:38 CGR [id number]) Medical Review Prior Functional Status Medical History Reviewed Yes Communication Pt is an effective verbal communicators. Mobility and Gait Pt was Ind at baseline. Activities of Daily Living and IADL's Pt was IND at baseline and lives alone. Social History Household Members none Living Arrangements House Number of Floors (Floors) Two Floors Number of Stairs To Enter/Railing? Pt states she has 2 steps to enter from the garage with a railing on the R assending. Pt has a chair lift up to the second floor which is her main living area. Home Environment Standard Height Toilet,Walk in Shower,Tub/Shower Home Equipment Front Wheel Walker,Four Wheel Walker,Manual Wheelchair, Shower Seat without Backrest, Hand Held Shower Employment Status Retired Additional Social History Comment Pt is an active hazmat tanker driver, has an adjustable bed, and has family that is very supportive and nearby. M2 OT-IP Current Condition Start: 02/08/23 10:10 Freq: Status: Active Protocol: Document 02/08/23 10:12 CGR (Rec: 02/08/23 10:38 CGR [id number]) Occupational Therapy Current Condition Current Condition Evaluation Date 02/08/23 Treatment Diagnosis L femoral fx, s/p pinning. Diagnosis Onset Date 02/06/23 Weight Bearing Status Weight Bearing Status Partial Weight Bearing Allowed Weight Bearing Amount (enter % 50% or #) (%) M3 OT- IP Subjective and Pain Start: 02/08/23 10:10 Freq: Status: Active Protocol: Document 02/08/23 10:12 CGR (Rec: 02/08/23 10:38 CGR [id number]) OT- Subjective Occupational Therapy Visit Type Type Initial Evaluation Visit Start Time 08:56 Visit Stop Time 09:45 Total Visit Minutes 49 Notes Pt requesting more pain medication and recieved IV medication prior to activity. OT Pain Assessment Pain When Pain Assessed At Rest Pain Present Pain Present Pain Reported Location Left Hip Intensity 8 Scale Used Numeric (0 - 10) Pain Behaviors Facial Grimacing Management Techniques Distraction,Modification of Treatment,Re-positioning, Timing of Activity with Medications M4 OT- IP ADL's Start: 02/08/23 10:10 Freq: Status: Active Protocol: Document 02/08/23 10:12 CGR (Rec: 02/08/23 10:38 CGR [id number]) OT [id number] Comments OT Self-Feeding Comments not meal time but pt is able to drink from a cup and from a straw. OT ADL-Grooming Comments OT Grooming Comments Pt declined after transfer requesting to rest OT ADL-Oral Care Comments Oral Care Comments Pt declined after transfer requesting to rest OT ADL-Dressing General Eval Lower Body Dressing Ability Total Assistance Areas Needing Assistance Socks Comments OT Dressing Comments supine in bed OT ADL-Toileting General Evaluation Toileting Ability Total Assistance Areas Needing Assistance Empty Catheter or Colostomy Comments OT Toileting Comments not performed, pt with last OT ADL-Bathing Comments OT Bathing Comments not performed M5 OT- IP IADL's Start: 02/08/23 10:10 Freq: Status: Active Protocol: Document 02/08/23 10:12 CGR (Rec: 02/08/23 10:38 CGR [id number]) OT-Instrumental Activities of Daily Living Deficits IADL Deficits Identified Deficits Home Safety Awareness Awareness of Need for Assistance at Home Good Awareness Ability to Problem Solve Emergency Able to Problem Solve Situations Medication Management Medication Management No Deficits Identified Money Management Money Management No Deficits Identified Meal Preparation Meal Preparation Comments Concerns regarding her ability to perform Fireperson Fireperson Comments Concerns regarding her ability to perform Driving Driving Comments Concerns regarding her ability to perform M6 OT- IP Functional Cognition Start: 02/08/23 10:10 Freq: Status: Active Protocol: Document 02/08/23 10:12 CGR (Rec: 02/08/23 10:38 CGR [id number]) Cognitive Factors Limiting Selfcare Function Cognitive Ability Level of Alertness Alert Patient Orientation Name,Age,Birthday,Month,Date, Year,Day of Week,Place, Situation Attention Span Ability Capable of Focused Attention, Capable of Sustained Attention Ability to Follow Commands Able to Follow One Step Commands with Increased Time, Able to Follow One Step Commands with Repetition OT- Vision and Hearing OT- Hearing Assessment OT- Hearing Assessment Hearing Impaired,Use of Hearing Aids OT- Vision Assessment Visual Acuity Glasses All The Time Visual Attentiveness WFL Occular Pursuits WFL Visual Convergence WFL M7 OT- IP Mobility and Balance Start: 02/08/23 10:10 Freq: Status: Active Protocol: Document 02/08/23 10:12 CGR (Rec: 02/08/23 10:38 R [id number]) OT- Bed Mobility Assessment Supine to Sit Supine to Sit Assist Maximum Assistance,1 Person Assistance,Head of Bed Elevated Scooting Scooting to Edge of Bed Maximum Assistance,1 Person Assistance,Head of Bed Elevated OT-Transfer Assessment Sit to and From Stand Sit to and from Stand Maximum Assistance,1 Person Assistance Transfers Transfer Ability Maximum Assistance,1 Person Assistance Technique Transfer Destination Bed,Chair Transfer Technique Stand Step Pivot Devices Transfer Assistive Devices Gait Belt,Front Wheeled Walker Comments Mobility Comments Pt educated on need for use of walker. Pt was able to take steps off setting her weight with the walker with mod VC. Pt needed extra time for all mobility. OT- Gait Assessment Comments Gait Ability Comments did not perform OT- Balance Assessment Sitting Balance and Reactions Static Sitting Balance Ability Good Dynamic Sitting Balance Ability Good M8 OT- IP Objective Assessments Start: 02/08/23 10:10 Freq: Status: Active Protocol: Document 02/08/23 10:12 CGR (Rec: 02/08/23 10:38 R [id number]) OT Gross Range of Motion Upper Extremity Range of Motion Assessment Within Functional Limits OT Strength Upper Extremity Strength Assessment Within Functional Limits Comments Strength Comments grossly 4/5 OT- Coordination Assessment Upper Extremity Finger to Nose Test Within Functional Limits Finger Tapping Test Within Functional Limits OT-Muscle Tone Assessment Muscle Tone WNL Yes OT Sensation Assessment Edema Edema Absent M9 OT- IP Assessment and Plan Start: 02/08/23 10:10 Freq: Status: Active Protocol: Document 02/08/23 10:12 CGR (Rec: 02/08/23 10:38 R [id number]) OT Summary Assessment and Plan Potential Rehabilitation Potential Excellent Analytic Complexity at Evaluation Moderate Summary OT Impairments Pain,Strength,Balance, Functional Mobility,Dressing, Toileting,Bathing,Toilet Transfers,Shower Transfers, Activity Tolerance Progress Towards Goals Slow Progress due to Pain Assessment Summary Pt presents as a moderate complexity evaluation s/p admit for fall with L hip fx. Pt underwent 02/07/23 hip pinning and is partial WB 50%. Pt was able to participate with activities with extra pain medication and extra time for all movement. Pt transferred to chair with max a for all mobility. Pt will benefit from SNF at discharge and is agreeable. Pt would not be appropriate for discharge home at this time. Goals Grooming Goal Independent Dressing Goal Independent Toileting Goal Independent Bathing Goal Independent Toilet Transfer Goal Independent Shower Transfer Goal Independent Days to Meet Goals 30 Frequency of Treatment Frequency Of Treatment Once a Day Treatment Plan OT Treatment Plan ADL Training,Functional Mobility,Patient/Family Education,Discharge Planning Other Treatment Recommendations and Next BSC xfer, ADLs seated Treatment Focus Discharge Recommendations OT Discharge Recommendations SNF Rehab Transportation Needs at Discharge Wheelchair/Cabulance
--- NOTE | 2023-02-08 10:42 | PT.IIE ---
Current Diagnoses Hypo-osmolality and hyponatremia (02/06/23) Essential (primary) hypertension (02/06/23) Gastro-esophageal reflux disease without esophagitis (02/06/23) Age-related osteoporosis without current pathological fracture (02/06/23) Repeated falls (02/06/23) Fracture of unspecified part of neck of left femur, initial encounter for closed fracture (02/06/23) Surgery Performed Operation Date: 02/07/23 12:00 Actual Procedures p ORIF Hip/Cannulated Screws - Hitesh Short MD Physical Therapy Inpatient Evaluation/Re-Eval M1 PT/OT-IP Prior Functional Status Start: 02/08/23 08:35 Freq: NEEDED Status: Active Protocol: Document 02/08/23 10:42 AW (Rec: 02/08/23 11:45 AW [id number]) Medical Review Prior Functional Status Medical History Reviewed Yes Communication Pt is an effective verbal communicator. Mobility and Gait Pt was Ind at baseline. Tends to furniture and wall surf at home. Denies falls in the past few years. Activities of Daily Living and IADL's Pt was IND at baseline and lives alone. She does not drive. Social History Household Members none Living Arrangements House Number of Floors (Floors) Two Floors Number of Stairs To Enter/Railing? Pt states she has 2 steps to enter from the garage with a railing on the R ascending. Pt has a chair lift up to the second floor which is her main living area. Home Environment Standard Height Toilet,Walk in Shower,Tub/Shower Home Equipment Front Wheel Walker,Four Wheel Walker,Manual Wheelchair, Shower Seat without Backrest, Hand Held Shower Employment Status Retired Additional Social History Comment Pt lives alone, has an adjustable bed and a transport chair, and has family that is very supportive and nearby. Pt states she spends many nights at her daughter's home. M2 PT-IP Current Condition Start: 02/08/23 08:35 Freq: NEEDED Status: Active Protocol: Document 02/08/23 10:42 AW (Rec: 02/08/23 11:45 AW [id number]) Physical Therapy Current Condition Current Condition Evaluation Date 02/08/23 Treatment Diagnosis L femoral neck fracture s/p ORIF; impaired mobility and gait Onset Date 02/07/23 M3 PT-IP Subjective Start: 02/08/23 08:35 Freq: NEEDED Status: Active Protocol: Document 02/08/23 10:42 AW (Rec: 02/08/23 11:45 AW [id number]) Subjective Physical Therapy Visit Type Type Initial Evaluation Visit Start Time 10:13 Visit Stop Time 10:42 Total Visit Minutes 29 Physical Therapy Visit Comments Patient Comments Pt is willing to participate with PT Patient Goals Pt is open to rehab options, understands recommendation for SNF Therapy Pain Assessment Pain When Pain Assessed During Mobility Pain Present Pain Present Pain Reported Location Left Hip Intensity 10 Scale Used Numeric (0 - 10) M4 PT-IP Mobility and Gait Start: 02/08/23 08:35 Freq: NEEDED Status: Active Protocol: Document 02/08/23 10:42 AW (Rec: 02/08/23 11:45 AW [id number]) PT-Transfer Assessment Sit to and From Stand Sit to and from Stand Maximum Assistance,1 Person Assistance,Use of Upper Extremities Equipment Transfer Assistive Device Gait Belt,Front Wheeled Walker Orthotic/Prosthetic Devices or Brace: No Transfers Transfer Destination Chair Transfer Technique sit<> stand Transfer Ability Level of Assist Maximum Assistance Comments Mobility Comments Pt was sitting up in the chair as PT arrived, agreeable to work with therapy but concerned about her pain. Discussed with RN who states pt has had all available pain medication. Max A to scoot forward on the chair and to stand. Pt was immediately shaky with pain and reported weakness while using FWW for steadiness. Pt tends to shift her weight toward right LE but is able to bear some weight on LLE, taking small marching step x 2 before needing to sit . Pt refused further activity and was left in the chair with call light handy. Gait Assessment Comments Gait Comments Unable to progress to functional gait at this time. PT-Balance Assessment Sitting Balance and Reactions Static Sitting Balance Ability Good Dynamic Sitting Balance Ability Fair Standing Balance and Reactions Static Standing Balance Ability Poor Device Used FWW M5 PT-IP Objective Assessments Start: 02/08/23 08:35 Freq: NEEDED Status: Active Protocol: Document 02/08/23 10:42 AW (Rec: 02/08/23 11:45 AW [id number]) Orientation Orientation/Cognition Level of Alertness Alert Orientation Name,Month,Place,Situation Language Function Ability Hard of Hearing Safety Awareness Understands Safety Issues Gross Range of Motion Upper Extremity ROM Assessment Within Functional Limits Lower Extremity ROM Assessment Left Impaired Strength Upper Extremity Strength Assessment Within Functional Limits Lower Extremity Strength Assessment Bilaterally Impaired Comments Strength Comments RLE grossly 4/5 except DF 4+/5 . LLE hip 3-/5, knee 4-/5, and ankle DF 4/5. Sensation Assessment Sensation Gross Sensation WNL Other Assessments Other Other Assessments VS: BP 141/64 HR 79. M6 PT-IP Treatment Start: 02/08/23 08:35 Freq: NEEDED Status: Active Protocol: Document 02/08/23 10:42 AW (Rec: 02/08/23 11:45 AW [id number]) Physical Therapy Treatment Education Education Provided Precautions,Weight Bearing Status,Post-Op Packet,Safety M7 PT-IP Assessment and Plan Start: 02/08/23 08:35 Freq: NEEDED Status: Active Protocol: Document 02/08/23 10:42 AW (Rec: 02/08/23 11:45 AW [id number]) PT Summary Assessment and Plan Potential Rehabilitation Potential Good Status of Condition at Evaluation Evolving Summary Impairments Pain,ROM,Strength,Balance,Bed Mobility,Transfers,Gait Assessment Summary Kari Mendoza is an 82 yo woman seen for PT evaluation on POD1 following fixation of left femoral neck fracture. PMH includes hypertension, osteoporosis, and GERD. She recently underwent kyphoplasty for compression fractures secondary to osteoporosis. She is independent at baseline but admits to furniture surfing at home. She denies falls but osteoporotic compression fractures may suggest falls history. CLOF: Pt is not tolerating much activity secondary to pain. She appears to understand her PWB (50%) status and is able to maintain same during limited mobility assessment. Mobility is severely limited by pain, management of which is sure to be a significant factor in her ability to work with skilled therapies. PT recommends SNF for 24/7 assist and daily rehab activities to maximize pt's functional recovery. Goals Bed Mobility Goal Standby Assistance Transfer Goal Standby Assistance,Front Wheeled Walker Gait Goal Standby Assistance,Front Wheel Walker Gait Distance 75 Days to Meet Goals 10 Frequency of Treatment Frequency Of Treatment Twice a Day Treatment Plan Physical Therapy Treatment Plan Bed Mobility Training,Transfer Training,Gait Training, Therapeutic Exercise,Balance Retraining,Post Op Education, Discharge Planning,Hot or Cold Pack,Neuromuscular Re-ed Other Recommendations and Next Treatment reinforce WB status, mobilize Focus as tolerated, coordinate with nursing for pain management Weight Bearing Status Weight Bearing Status Partial Weight Bearing Allowed Weight Bearing Amount (enter % 50% PWB LLE or #) (%) Recommendations To Nursing Amount of Assist Needed 2 Person Assist Discharge Recommendations PT Discharge Recommendations SNF Rehab Transportation Needs at Discharge Wheelchair/Cabulance
[2023-02-08] MEDS: ACETAMINOPHEN 325 MG TABLET 650 MG PO (11:04)
--- NOTE | 2023-02-08 13:09 | CM.DPNOTE ---
Faxed clinicals to [facility] for SNF auth review as they are considering approving one-time auth to [facility] due to pt's home location and also faxed new referral to [facility] to review per [facility] request. MEHDI Vee
--- NOTE | 2023-02-08 13:22 | CM.DPC ---
Addendum entered by MEHDI Lopez 02/08/23 15:59: [facility] can accept patient tomorrow 02/09. Transport scheduled for 11am. Provider on board with plan. DE IONIZER OPERATOR spoke with patient. Patient okay with it but wanted to check availability in [place]. DE IONIZER OPERATOR lvm with Elisha at [employer] [facility]. DE IONIZER OPERATOR spoke with admissions at [facility] and rehab, no beds available. Patient okay to d/c to [facility] tomorrow morning. DE IONIZER OPERATOR called daughter Pat ([phone]). Pat on board with plan. DE IONIZER OPERATOR answered questions. From [place] case manger Renee, auth #[id number]. DE IONIZER OPERATOR provided [facility] with [place] auth number. DE IONIZER OPERATOR completed PASSR. Plan: patient to d/c to [facility] tomorrow morning at 11am. Transport with facility. CM team will continue to follow closely. MEHDI Lopez Addendum entered by MEHDI Lopez 02/08/23 13:54: From Renee, cannot approve auth for [facility]. DE IONIZER OPERATOR called [facility] at [facility]. [facility] kindly agreed to review initial referral. SL Original Note: DCP Continued: DE IONIZER OPERATOR reviewed EMR. Per OT/PT, currently recommending SNF at this time. Per hospitalist, patient can d/c when safe d.c plan is established. DE IONIZER OPERATOR entered room and reintroduced self and role. Patient sitting up in chair and reports being in a lot of pain. Patient reports wanting to be as close to home in [facility] [facility] as possible for SNF. DE IONIZER OPERATOR spoke with Renee ([place] director case management) (#[phone]) at likelihood of approving auth for SNF at [facility]. She reports she will look into it. DE IONIZER OPERATOR spoke with Jane at [facility]. Jane reports they have beds and could accept her whenever if auth approved. DE IONIZER OPERATORMarty Max kindly agreed to fax initial ref to Jane at [facility] and clinical info to [place]. Plan: d/c to SNF pending [place] approval. Transport likely with facility. CM team will continue to follow closely for [place] auth for SNF. MEHDI Lopez
--- NOTE | 2023-02-08 13:59 | P.PN_ITS ---
Subjective Subjective Date Patient Seen: 02/08/23 Time Patient Seen: 07:30 Interval history: Patient is awake resting in bed this morning. She states that she has fairly significant pain to the left hip and is requesting her next dose of pain medication. She states she had little to no pain overnight did not need medication. Denies nausea, vomiting, chest pain, shortness of breath. She is looking forward to working with physical therapy as long as her pain is well managed. Exam Vital Signs (past 8 hours): - 02/08/23 08:09 02/08/23 09:20 02/08/23 09:00 Temperature 97.7 F Pulse Rate 68 82 82 Respiratory Rate 20 Blood Pressure 156/74 H 157/60 H Pulse Oximetry 98 Oxygen Flow Rate 2 Fraction of Inspired Oxygen 32 SaO2/FiO2 Ratio 296 Oxygen Delivery Method Nasal Cannula Oxygen Flow Rate 2 Narrative Exam Narrative: Pleasant 82-year-old female. Awake, alert, and oriented. Left hip bandage with dime-sized spot of blood on otherwise clean, dry, and intact bandage. Strength and sensation intact to bilateral lower extremities. Left calf soft and compressible, though tender to palpation without cords or masses. Objective Labs 02/08/23 05:02 02/08/23 05:02 Labs: Laboratory Results - last 24 hr 02/08/23 02/08/23 05:02 05:02 WBC 7.6 RBC 3.41 L Hgb 10.4 L Hct 30.7 L MCV 90.0 MCH 30.4 MCHC 33.8 RDW 14.5 Plt Count Not Reportable Neut % (Auto) 82.8 H Lymph % (Auto) 9.3 L [place] % (Auto) 4.6 Eos % (Auto) 2.3 Baso % (Auto) 1.0 Neut # (Auto) 6300 Lymph # (Auto) 700 L [place] # (Auto) 300 Eos # (Auto) 200 Baso # (Auto) 100 Plt Morphology Comment RBC Morphology See below Schistocytes 1+ H Sodium 127 L Potassium 4.5 Chloride 101 Carbon Dioxide 21 L BUN 14 Creatinine 0.75 Estimated GFR > 60 BUN/Creatinine Ratio 18.7 Glucose 109 Calcium 8.0 L Magnesium 1.7 PFSH Social History household members: none Smoking Status: Never smoker Assessment & Plan Post-op Postoperative Procedures: Procedures Operation Date: 02/07/23 12:00 Actual Procedure Side Surgeon p ORIF Hip/Cannulated Screws Hitesh Short MD Postoperative day: 1 Postoperative status: doing well Postoperative status narrative: Patient is progressing as expected postop day 1 following left hip ORIF with cannulated screws. Postoperative plan: routine post-op care Postoperative plan narrative: Patient is to be partial weight-bearing per postop orders by Dr. Short. She will start working with therapy. Continue multimodal pain regimen as needed. Disposition pending. Follow up with Orthopedics in 2 weeks.
--- NOTE | 2023-02-08 15:08 | PT-IP ANOTE ---
Attempted to work with pt this PM but she refused secondary to pain. Educated pt on the risks of immobility and the benefits of participation with therapies but she continued to refuse, asking for PT to return in the morning. Informed RN of possible need for clare to transfer back to bed when pt is ready. Will continue to follow.
[2023-02-08] MEDS: methocarbamoL 500 MG TABLET 750 MG PO (15:20)
[2023-02-08] MEDS: MAG HYDROX/ALUM/SIMETH 30 ML UDC PO (16:06)
--- NOTE | 2023-02-08 18:36 | PM.PN.1 ---
Subjective Subjective Interval history: Patient feels well and has no complaints. Surgery went well. PT rec SNF. Exam Vital Signs (past 8 hours): Fraction of Inspired Oxygen 32 SaO2/FiO2 Ratio 296 Oxygen Delivery Method Nasal Cannula Oxygen Flow Rate 2 Const Other: laying in bed in no distress, daughter at bedside [place] Other: chronic hearing loss Eyes Other: jaimie, eomi Neck Other: supple Resp Other: CTA Cardio Other: RRR, w/o murmurs GI Other: soft, not distended Neuro Other: w/o acute focal deficits Extrem Other: w/o swelling, post-surgical dressing in place Psych Other: appropriate mood and affect Objective Labs 02/08/23 05:02 02/08/23 05:02 Labs: Laboratory Results - last 24 hr 02/08/23 02/08/23 05:02 05:02 WBC 7.6 RBC 3.41 L Hgb 10.4 L Hct 30.7 L MCV 90.0 MCH 30.4 MCHC 33.8 RDW 14.5 Plt Count Not Reportable Neut % (Auto) 82.8 H Lymph % (Auto) 9.3 L [place] % (Auto) 4.6 Eos % (Auto) 2.3 Baso % (Auto) 1.0 Neut # (Auto) 6300 Lymph # (Auto) 700 L [place] # (Auto) 300 Eos # (Auto) 200 Baso # (Auto) 100 Plt Morphology Comment RBC Morphology See below Schistocytes 1+ H Sodium 127 L Potassium 4.5 Chloride 101 Carbon Dioxide 21 L BUN 14 Creatinine 0.75 Estimated GFR > 60 BUN/Creatinine Ratio 18.7 Glucose 109 Calcium 8.0 L Magnesium 1.7 PFSH Social History household members: none Smoking Status: Never smoker Assessment & Plan Assessment and plan (1) Fracture of femoral neck, left: Status: Acute Plan: - impacted, subcapital - pain management - underwent surgical repair with screws on 02/[address] Han ornelas - PT/OT eval rec SNF (2) GERD (gastroesophageal reflux disease): Status: Acute Plan: - PPI (3) Hypertension: Status: Acute Plan: - HCTZ, amlodipine, BB (4) Osteoporosis: Status: Acute Plan: used to be on Fosamax. Apparently on nothing right now - will need vit D and bisphosphonate (5) Recurrent falls: Status: Acute Plan: PT, OT evaluation (6) Hyponatremia: Status: Acute Plan: NS, recheck lytes Plan Dispo: SNF arranged for 02/09.
[2023-02-08] MEDS: SENNOSIDES 8.6 MG TABLET 17.2 MG PO (20:14)
[2023-02-09] MEDS: OXYCODONE IR 5 MG TABLET PO ×2 (01:54→08:14)
[2023-02-09] MEDS: ACETAMINOPHEN 325 MG TABLET 650 MG PO (01:55)
[2023-02-09] MEDS: diphenhydrAMINE 25 MG TABLET 50 MG PO (02:33)
--- NOTE | 2023-02-09 02:36 | PC.NURSE ---
C/O sl. pruritus & stuffy nose requested anti allergy medication & only want to take 1 pill. 25 mg. of PO Benadryl admin. Will cont. plan of care & monitor.
[2023-02-09 05:52] LABS: Add Manual Diff / Slide Review YES; Hematocrit 32.5 % (36-46); Hemoglobin 11.2 g/dL (12.0-16.0); Mean Corpuscular HGB Conc 34.6 % (30-36); Mean Corpuscular Hemoglobin 31.1 PG (26-34); Mean Corpuscular Volume 89.9 fL (80-100); Platelet Count 137 X10^3/uL (150-400); Red Blood Cell Count 3.61 X10^6/uL (4.0-5.2); Red Cell Distribution Width 14.4 % (11.6-14.8); White Blood Cell Count 7.3 X10^3/uL (4.5-11.0)
[2023-02-09 05:53] LABS: Magnesium 1.8 mg/dL (1.6-2.3)
[2023-02-09 05:54] LABS: BUN Creatinine Ratio 17.9 (6-22); Blood Urea Nitrogen 12 mg/dL (7-17); Calcium 8.4 mg/dL (8.4-10.2); Carbon Dioxide 25 mmol/L (22-32); Chloride 98 mmol/L (98-107); Estimated Glomerular Filt Rate > 60 mL/min (>60); Glucose 89 mg/dL (80-110); HEMOLYSIS < 15 (0-50); Potassium 4.2 mmol/L (3.4-5.1); Sodium 129 mmol/L (137-145)
[2023-02-09 06:50] LABS: Neutrophils Absolute Manual 4526 /uL (3000-5900); Total Cells Counted 100
[2023-02-09 06:51] LABS: Anisocytosis 1+
--- NOTE | 2023-02-09 07:33 | PM.DS.1 ---
History of Present Illness History of Present Illness Date Patient Seen: 02/06/23 Chief complaint: GLF/ Left hip pain Narrative: 82 y/o with PMH of osteoporosis, recurrent GLFs due to imapired balance, who fell in the store and fractured Lt femoral neck. Presents with left hip pain, unable to bear weight / ambulate. Only recently had kyphoplasty of LS for osteoporotic compression fractures. Discharge Providers Provider Date of admission: 02/06/23 21:15 Discharge Date: 02/09/23 Consults: 02/06/23 21:25 Consult to Occupational Therapy Evaluate & Treat Comment: Physician Instructions: Evaluate and treat 02/07/23 12:49 Consult to Discharge Planning Routine Comment: Consult to Physical Therapy Evaluate & Treat Comment: Physician Instructions: Evaluate and Treat Discharge provider: Everton Coyle, DO Summary Hospital Course Discharge Diagnosis: (1) Fracture of femoral neck, left: ?Status:?Acute ?Plan: - impacted, subcapital - underwent surgical repair with screws on 02/[address] Han ornelas - PT/OT eval rec SNF - lovenox x4 weeks (2) GERD (gastroesophageal reflux disease): ?Status:?Acute ?Plan: - PPI (3) Hypertension: ?Status:?Acute ?Plan: - stopped HCTZ due to hyponatremia, increased amlodipine from 5 to 10mg daily (4) Osteoporosis: ?Status:?Acute ?Plan: used to be on Fosamax. Apparently on nothing right now - will need vit D and bisphosphonate (5) Recurrent falls: ?Status:?Acute ?Plan: PT, OT evaluation rec SNF (6) Hyponatremia: Likely due to HCTZ and dehydration. 126 on arrival and improved to 129 with IVF. Stopped HCTZ on discharge. ?Status:?Acute ?Plan: Hospital Course: Admitted for fall resulting in left femoral neck fracture. Underwent uncomplicated repair with ortho and did well following surgery. PT/OT rec SNF. Sodium levels improved with IVF. HCTZ stopped and amlodipine increased to account for this. Should have repeat labs to recheck sodium at SNF at some point, and if still low consider adding salt tabs. Should also have osteoporosis evaluation and be put on meds for this. Exam Vital Signs (past 8 hours): Fraction of Inspired Oxygen 21 SaO2/FiO2 Ratio 438 Oxygen Delivery Method Room Air Oxygen Flow Rate 0 Const Other: laying in bed in no distress HENMT Other: chronic hearing loss Eyes Other: jaimie, eomi Neck Other: supple Resp Other: CTA Cardio Other: RRR, w/o murmurs GI Other: soft, not distended Neuro Other: w/o acute focal deficits Extrem Other: w/o swelling, post-surgical dressing in place Psych Other: appropriate mood and affect Objective Labs 02/09/23 05:00 02/09/23 05:00 Labs: Laboratory Results - last 24 hr 02/09/23 02/09/23 02/09/23 05:00 05:00 05:00 WBC 7.3 RBC 3.61 L Hgb 11.2 L Hct 32.5 L MCV 89.9 MCH 31.1 MCHC 34.6 RDW 14.4 Plt Count 137 L Neut % (Auto) Not Reportable Lymph % (Auto) Not Reportable [place] % (Auto) Not Reportable Eos % (Auto) Not Reportable Baso % (Auto) Not Reportable Lymph # (Auto) Not Reportable [place] # (Auto) Not Reportable Baso # (Auto) Not Reportable Total Counted 100 Seg Neutrophils % 54.0 Band Neutrophils % 8.0 H Lymphocytes % (Manual) 26.0 Monocytes % (Manual) 1.0 L Eosinophils % (Manual) 8.0 H Basophils % (Manual) 1.0 Myelocytes % 2.0 H Neutrophils # (Manual) 4526 RBC Morphology See below Anisocytosis 1+ H Sodium 129 L Potassium 4.2 Chloride 98 Carbon Dioxide 25 BUN 12 Creatinine 0.67 Estimated GFR > 60 BUN/Creatinine Ratio 17.9 Glucose 89 Calcium 8.4 Magnesium 1.8 [facility] Social History household members: none Smoking Status: Never smoker Discharge Plan Discharge Plan Patient Disposition: SNF Discharge orders & Medications Prescriptions: New enoxaparin [Lovenox] 40 mg/0.4 mL Syringe 40 mg SUBCUT DAILY 28 Days Qty: 12 0RF amlodipine 10 mg tablet 10 mg PO DAILY Qty: 30 0RF Continued methocarbamol 750 mg tablet 750 mg PO PRN PRN (Reason: Back Pain) meloxicam 7.5 mg tablet 7.5 mg PO BID acetaminophen [Tylenol] 325 mg Capsule 500 mg PO QID Rx Instructions: pt takes 2 tabs as needed metoprolol succinate 25 mg tablet extended release 24 hr 25 mg PO DAILY mirtazapine 15 mg tablet 30 mg PO DAILY omeprazole 20 mg capsule,delayed release(DR/EC) 20 mg PO BID polyethylene glycol 3350 [Miralax] 17 gram Powder In Packet 17 g PO PRN PRN (Reason: Constipation) hydrocodone-acetaminophen 5-325 mg tablet 5 tab PO PRN PRN (Reason: Back Pain) Qty: 30 0RF Rx Instructions: pt takes 1-2 tqabs daily Discontinued amlodipine 2.5 mg tablet 5 mg PO DAILY hydrochlorothiazide 25 mg tablet 25 mg PO DAILY Visit Report/Discharge Packet Stand Alone Forms: Patient Portal/API
[2023-02-09 08:00] VITALS: BP 177/83; PULSE 73; RESP 18; TEMP 36.7; O2SAT 93
[2023-02-09 08:13] VITALS: BP 177/83; PULSE 74
[2023-02-09] MEDS: AMLODIPINE 5 MG TABLET PO ×2 (08:13→08:17)
[2023-02-09] MEDS: METOPROLOL ER 25 MG TABLET PO (08:13)
[2023-02-09] MEDS: DOCUSATE 100 MG CAPSULE PO (08:13)
[2023-02-09] MEDS: ENOXAPARIN 40 MG/0.4 ML SYRINGE SUBCUT (08:13)
[2023-02-09] MEDS: MELOXICAM 7.5 MG TABLET PO (08:13)
[2023-02-09] MEDS: PANTOPRAZOLE DR 20 MG TABLET PO (08:14)
[2023-02-09] MEDS: MIRTAZAPINE 15 MG TABLET 30 MG PO (08:14)
[2023-02-09] MEDS: polyethylene glycoL 3350 17 GM POWD.PACK PO (08:14)
[2023-02-09 08:43] VITALS: PULSE 70
--- NOTE | 2023-02-09 08:49 | CM.DPC ---
DCP Continued: STEAM TRAP WORKER faxed copy of signed med list, script, PASRR, and d/c summary to [facility]. STEAM TRAP WORKER confirmed P/u time with October from SV, nurse, charge nurse, provider, and patient. All in agreement. STEAM TRAP WORKER placed PASRR, original scripts, and signed med list in red folder. STEAM TRAP WORKER gave nurse report number. October asked for medical reason to d/c with [facility] in paperwork, STEAM TRAP WORKER asked provider to add an addendum to d/c summary provider in agreement. Plan: patient to d/c today at 1100 to [facility]. CM team will continue to follow as needed, MEHDI Lopez
--- NOTE | 2023-02-09 09:12 | PT-IP ANOTE ---
Pt refused to work with PT this morning, pt reports she is having some pain and would like to rest before she goes to rehab.
--- NOTE | 2023-02-09 11:15 | PC.NURSE ---
Discharge Note Patient A&O, VSS, RA, complaint of pain, medicated with PRN Percocet. Patient agreeable to discharge plan. PIV discontinued. Patient assisted in dressing and packing all belongings. Patient transferred to wheelchair via clare by this RN and PCT Deidre. Discharge packet given to facility staff. Patient taken by facility staff via wheelchair accompanied by PCT with patient belongings. Report given to receiving RN at facility, all questions/concerns addressed.
== END 2023-02-09 11:15 | DRG 481 ==
LOC: ED 21:15 → AC 21:16
PROVIDERS: Orthopaedic Surgery; Student in an Organized Health Care Education/Training Program; Admitting Provider Internal Medicine; Emergency Provider Emergency Medicine; Referring Provider Emergency Medicine; Visit Provider Internal Medicine
PROC: 0QS734Z Reposition Left Upper Femur with Internal Fixation Device, Percutaneous Approach (ICD-10-PCS; principal; 2023-02-07 12:00)
DX: S72.012A Unspecified intracapsular fracture of left femur, initial encounter for closed fracture (principal); E87.1 Hypo-osmolality and hyponatremia; W01.0XXA Fall on same level from slipping, tripping and stumbling without subsequent striking against object, initial encounter; M81.0 Age-related osteoporosis without current pathological fracture; K21.9 Gastro-esophageal reflux disease without esophagitis; Z91.81 History of falling; E86.0 Dehydration; T50.2X5A Adverse effect of carbonic-anhydrase inhibitors, benzothiadiazides and other diuretics, initial encounter
CPT/HCPCS: 36415; 51701; 73502; 76000; 80048; 81003; 83735; 85007; 85025; 85730; 94760; 96374; 96375; 96376; 97162; 97166; 97530; 99284; J0690; J1100; J1170; J1650; J2270; J2405; J2704; J3010